=== PATIENT | female | born 1980 | race Caucasian/White ===

== ENCOUNTER 2022-12-03 16:49 | Outpatient (CLI) | payer BC, SELFPAY ==
--- NOTE | 2022-12-03 17:15 | CRLHL7_ITS ---
For Patients: As a result of the Cures Act, medical imaging exams and procedure reports are released immediately into your electronic medical record. You may view this report before your referring provider. If you have questions, please contact your health care provider. BILATERAL SCREENING MAMMOGRAM WITH COMPUTER-AIDED DETECTION AND TOMOSYNTHESIS TECHNIQUE: CC and MLO views were obtained. These mammographic images have been obtained using full-field digital technique. These mammographic images were interpreted with the benefit of computer-aided detection. Breast Tomosynthesis was used in this interpretation. COMPARISON FILM: 11/08/21,10/30/20,10/27/19. FINDINGS: The breasts are heterogeneously dense, which may obscure small masses IMPRESSION: There is no radiographic evidence for malignancy. ASSESSMENT: BI-RADS Category 1: Negative RECOMMENDATION: Routine screening mammogram in 1 year. A lay language report of this examination will be provided to the patient. Tam Early M.D. Diagnostic/Nuclear Medicine Radiologist [email or web address] Transcribed: 2:11 pm DW/Dictated by: Tam Early MD @ 12/04/2022 8:28:00 AM (Electronically Signed)
== END 2022-12-03 16:50 | disposition home or self-care (01) ==
LOC: MAMMO 16:50
PROVIDERS: PCP Physician Assistant Medical; Visit Provider Physician Assistant
DX: Z12.31 Encounter for screening mammogram for malignant neoplasm of breast (principal); R92.2 Inconclusive mammogram
CPT/HCPCS: 77063; 77067

== ENCOUNTER 2023-12-04 12:39 | Outpatient (CLI) | payer BC, SELFPAY ==
--- NOTE | 2023-12-04 13:20 | CRLHL7_ITS ---
For Patients: As a result of the Century Cures Act, medical imaging exams and procedure reports are released immediately into your electronic medical record. You may view this report before your referring provider. If you have questions, please contact your health care provider. BILATERAL SCREENING MAMMOGRAM WITH COMPUTER-AIDED DETECTION AND TOMOSYNTHESIS TECHNIQUE: CC and MLO views were obtained. These mammographic images have been obtained using full-field digital technique. These mammographic images were interpreted with the benefit of computer-aided detection. Breast Tomosynthesis was used in this interpretation. COMPARISON FILM: 12/03/22, 11/08/21, 10/30/20. FINDINGS: The breasts are heterogeneously dense, which may obscure small masses. IMPRESSION: There is no radiographic evidence for malignancy. ASSESSMENT: BI-RADS Category 1: Negative RECOMMENDATION: Routine screening mammogram in 1 year. A lay language report of this examination will be provided to the patient. Yaya Moya M.D. Diagnostic Radiologist [email or web address] SP/Dictated by: Yaya Moya MD @ 12/05/2023 11:00:00 AM (Electronically Signed)
== END 2023-12-04 12:40 | disposition home or self-care (01) ==
LOC: MAMMO 12:39
PROVIDERS: PCP Family Medicine; Visit Provider Obstetrics & Gynecology
DX: Z12.31 Encounter for screening mammogram for malignant neoplasm of breast (principal); R92.2 Inconclusive mammogram
CPT/HCPCS: 77063; 77067

== ENCOUNTER 2024-01-08 06:55 | Outpatient (CLI) | payer BC, SELFPAY ==
--- NOTE | 2024-01-08 08:53 | W.ANESCHARGE ---
Anesthesia Charges Start Date/Time Anesthesia Start Date: 01/08/24 Anesthesia Start Time: 08:02 Stop Date/Time Anesthesia Stop Date: 01/08/24 Anesthesia Stop Time: 08:50
--- NOTE | 2024-01-08 08:53 | W.ANESCHARGE ---
Anesthesia Charges Start Date/Time Anesthesia Start Date: 01/08/24 Anesthesia Start Time: 08:02 Stop Date/Time Anesthesia Stop Date: 01/08/24 Anesthesia Stop Time: 08:50
== END 2024-01-08 06:56 | disposition home or self-care (01) ==
LOC: OP CLINIC 06:55
PROVIDERS: PCP Family Medicine; Visit Provider Surgery
DX: Z12.11 Encounter for screening for malignant neoplasm of colon (principal); K63.5 Polyp of colon; K64.8 Other hemorrhoids
CPT/HCPCS: 00811; 45385; 88305; J2704

== ENCOUNTER 2024-12-10 14:46 | Outpatient (CLI) | payer BC, SELFPAY ==
--- NOTE | 2024-12-10 15:00 | CRLHL7_ITS ---
For Patients: As a result of the Century Cures Act, medical imaging exams and procedure reports are released immediately into your electronic medical record. You may view this report before your referring provider. If you have questions, please contact your health care provider. BILATERAL SCREENING MAMMOGRAM WITH COMPUTER-AIDED DETECTION AND TOMOSYNTHESIS TECHNIQUE: CC and MLO views were obtained. These mammographic images have been obtained using full-field digital technique. These mammographic images were interpreted with the benefit of computer-aided detection. Breast Tomosynthesis was used in this interpretation. COMPARISON FILM: 12/04/23, 12/03/22, 11/08/21. FINDINGS: There are scattered areas of fibroglandular density. IMPRESSION: There is no radiographic evidence for malignancy. ASSESSMENT: BI-RADS Category 1: Negative RECOMMENDATION: Routine screening mammogram in 1 year. A lay language report of this examination will be provided to the patient. Yaya Moya M.D. Diagnostic Radiologist [email or web address] SP/Dictated by: Yaya Moya MD @ 12/13/2024 9:41:00 AM (Electronically Signed)
== END 2024-12-10 14:47 | disposition home or self-care (01) ==
LOC: MAMMO 14:46
PROVIDERS: PCP Family Medicine; Visit Provider Obstetrics & Gynecology
DX: Z12.31 Encounter for screening mammogram for malignant neoplasm of breast (principal)
CPT/HCPCS: 77063; 77067

== ENCOUNTER 2025-01-14 14:37 | Outpatient (CLI) | payer BC, SELFPAY | END 2025-01-14 14:38 | disposition home or self-care (01) | LOC: NFLDREF 01-15 14:37 | PROVIDERS: PCP Family Medicine; Referring Provider Family Medicine; Visit Provider Obstetrics & Gynecology | DX: Z13.6 Encounter for screening for cardiovascular disorders (principal) | CPT/HCPCS: 80061 ==

== ENCOUNTER 2025-08-22 08:51 | Outpatient (CLI) | payer BC, SELFPAY | END 2025-08-22 08:52 | disposition home or self-care (01) | LOC: FRMREF 09:07 | PROVIDERS: PCP Family Medicine; Visit Provider Family Medicine | DX: Z11.59 Encounter for screening for other viral diseases (principal) | CPT/HCPCS: 80053; 86803 ==